=== PATIENT | female | born 1990 | race Caucasian/White ===

== ENCOUNTER 2021-08-07 10:24 | Inpatient (IN) | payer OTHER ==
[~2021-08-07] VITALS: Ht 160 cm; Wt 78.9 kg
[~2021-08-07 10:24] MED LIST: PERCOCET 5-3251 EACH PO
[2021-08-07 10:53] LABS: BILIRUBIN NEGATIVE (NEGATIVE); BLOOD NEGATIVE Ery/uL (NEGATIVE); CLARITY CLEAR (CLEAR); COLOR YELLOW (YELLOW); GLUCOSE (U) NORMAL (NORMAL); LEUKOCYTES 1+ Leu/uL (NEGATIVE); NITRITE NEGATIVE (NEGATIVE); PROTEIN NEGATIVE (NEGATIVE); SPECIFIC GRAVITY 1.015 (1.001-1.030); UROBILINOGEN 0.2 mg/dL (0.2-1.0); pH 6.5 (5.0-9.0)
[2021-08-07 11:09] LABS: BACTERIA 2+; MUCOUS MODERATE; SQUAMOUS EPITHELIAL CELLS >50
[2021-08-07 11:19] LABS: HCT 35.5 % (37.0-47.0); HGB 12.4 g/dl (12.5-16.0); MCH 31.2 pg (25.0-31.0); MCHC 34.9 g/dL (32.0-36.0); MCV 89.4 fL (78.0-100.0); MPV 11.8 fL (6.0-9.5); RBC 3.97 M/uL (4.20-5.40); RDW 12.8 % (11.5-14.0); WBC 9.5 K/uL (4.0-10.5)
[2021-08-07 12:17] LABS: AMPHETAMINES NEGATIVE (NEGATIVE); BARBITURATES NEGATIVE (NEGATIVE); ECSTASY (MDMA) NEGATIVE (NEGATIVE); MARIJUANA (THC) NEGATIVE (NEGATIVE); METHADONE NEGATIVE (NEGATIVE); OPIATES NEGATIVE (NEGATIVE); OXYCODONE NEGATIVE (NEGATIVE)
[2021-08-09 06:21] LABS: HCT 27.4 % (37.0-47.0); HGB 9.2 g/dl (12.5-16.0); MCHC 33.6 g/dL (32.0-36.0); MCV 92.3 fL (78.0-100.0); RBC 2.97 M/uL (4.20-5.40); WBC 9.4 K/uL (4.0-10.5)
== END 2021-08-10 12:35 | disposition home or self-care (01) | DRG 784 ==
LOC: FOD 10:24 → FOB 10:25 → FOD 13:04 → FOB 13:05
PROVIDERS: ADMIT Obstetrics & Gynecology
PROC: 10D00Z1 Extraction of Products of Conception, Low, Open Approach (ICD-10-PCS; principal; 2021-08-08)
PROC: 0UB70ZZ Excision of Bilateral Fallopian Tubes, Open Approach (ICD-10-PCS; 2021-08-08)
DX: O41.03X0 Oligohydramnios, third trimester, not applicable or unspecified (principal); D62 Acute posthemorrhagic anemia; O34.211 Maternal care for low transverse scar from previous cesarean delivery; Z37.0 Single live birth; O76 Abnormality in fetal heart rate and rhythm complicating labor and delivery; O99.03 Anemia complicating the puerperium; Z3A.38 38 weeks gestation of pregnancy; Z90.49 Acquired absence of other specified parts of digestive tract; Z30.2 Encounter for sterilization
CPT/HCPCS: 36415; 80305; 81001; 85461; 86850; 86900; 86901; 90686; J0690; J1100; J1885; J2274; J2405; J2790; J7120